=== PATIENT | male | born 1975 | race Caucasian/White ===

== ENCOUNTER → 2017-01-15 | Outpatient (CLI) | payer SELFPAY ==
--- NOTE | 2017-01-15 14:53 | CT ---
EXAMINATION TYPE: CT heart w calcium score DATE OF EXAM: 01/15/2017 10:33 AM COMPARISON: NONE HISTORY: Screening for cardiovascular disorder. 213.9 CT DLP: 34.6 mGycm Automated exposure control for dose reduction was used. CT CALCIUM SCORING Coronary calcium is a marker for plaque (fatty deposits) in a blood vessel or atherosclerosis (harden ing of the arteries). The presence and amount of calcium detected in a coronary artery by the CT sca n, indicates the presence and amount of atherosclerotic plaque. These calcium deposits appear years before the development of heart disease symptoms such as chest pain and shortness of breath. A calcium score is computed for each of the coronary arteries based upon the volume and density of th e calcium deposits. This can be referred to as your calcified plaque burden. It does not correspond directly to the percentage of narrowing in the artery but does correlate with the severity of the un derlying coronary atherosclerosis. PROCEDURE TECHNIQUE - Prospective Gating was used. Slice thickness: 3mm. Density threshold (HU): 130, Pixel threshold: 3, Algorithm: discrete. RESULTS Region: LM Calcium Score ([place]): 0 Volume (mm3): 0 Mass (g): 0 Region: RCA Calcium Score ([place]): 0 Volume (mm3): 0 Mass (g): 0 Region: LAD Calcium Score ([place]): 0 Volume (mm3): 0 Mass (g): 0 Region: CX Calcium Score ([place]): 0 Volume (mm3): 0 Mass (g): 0 Total: Calcium Score ([place]): 0 Volume (mm3): 0 Mass (g): 0 TOTAL CALCIUM SCORE: 0 OTHER: Ascending thoracic aorta at the level of the main pulmonary artery is 3.1 cm. The main pulmon aquilino bifurcation is 3.2 cm. Pulmonary hypertension should be considered. IMPRESSION: Calcium Score: 0 Implication: No identifiable plaque. Risk of Coronary Artery Disease: Very low, generally less than 5%. Consider mild pulmonary hypertension.
== END | disposition home or self-care (01) ==
LOC: RADXRMAIN 10:01
PROVIDERS: ATTEND Internal Medicine Interventional Cardiology
DX: Z13.9 Encounter for screening, unspecified (principal); Z53.9 Procedure and treatment not carried out, unspecified reason

== ENCOUNTER 2019-10-24 07:47 | Emergency (ER) | payer BC ==
[2019-10-24 07:53] VITALS: BP 148/95; PULSE 87; RESP 19; TEMP 98.3
--- NOTE | 2019-10-24 08:03 | ED ---
General Adult HPI - General Chief complaint: Extremity Injury, Upper Stated complaint: chest cold/pain & fever Time Seen by Provider: 10/24/19 07:50 Source: patient, RN notes reviewed, old records reviewed Mode of arrival: ambulatory Limitations: no limitations - History of Present Illness Initial comments: This is a 44-year-old male who presents emergency Department complaining of right upper chest wall pain. Patient states on Thursday at work they were practicing some wrestling move for his job. Patient states he fell on top of him with his elbow hitting him on the right side of the chest where his area of tenderness continues. Patient states that area is tender to palpation and it hurts take a deep breath or move in certain directions. Patient states he's had a little bit of a cough but no sputum production. Patient denies any difficulty breathing or shortness of breath per patient denies any chest pain over the sternum or left side. Patient denies any back pain. Patient denies any neck or head pain. Patient denies any other complaints at this time. - Related Data Previous Rx's Medication Instructions Recorded Ibuprofen [Motrin] 600 mg PO Q6HR PRN #20 tab 10/24/19 Allergies Allergy/AdvReac Type Severity Reaction Status Date / Time Penicillins Allergy Anaphylaxis Verified 10/24/19 07:54 Sulfa (Sulfonamide Allergy Anaphylaxis Verified 10/24/19 07:54 Antibiotics) sulfamethoxazole Allergy Anaphylaxis Verified 10/24/19 07:54 [From Bactrim] trimethoprim [From Bactrim] Allergy Anaphylaxis Verified 10/24/19 07:54 Review of Systems ROS Statement: Those systems with pertinent positive or pertinent negative responses have been documented in the HPI. ROS Other: All systems not noted in ROS Statement are negative. Past Medical History Past Medical History: No Reported History History of Any Multi-Drug Resistant Organisms: None Reported Past Surgical History: Hernia Repair Additional Past Surgical History / Comment(s): nasal surgery Past Psychological History: No Psychological Hx Reported Smoking Status: Never smoker Past Alcohol Use History: Occasional Past Drug Use History: None Reported General Exam - General Exam Comments Initial Comments: GENERAL: Patient is well-developed and well-nourished. Patient is nontoxic and well- hydrated and is in mild distress. ENT: Neck is soft and supple. No significant lymphadenopathy is noted. Oropharynx is clear. Moist mucous membranes. Neck has full range of motion without eliciting any pain. EYES: The sclera were anicteric and conjunctiva were pink and moist. Extraocular movements were intact and pupils were equal round and reactive to light. Eyelids were unremarkable. PULMONARY: Unlabored respirations. Good breath sounds bilaterally. No audible rales rhonchi or wheezing was noted. CARDIOVASCULAR: There is a regular rate and rhythm without any murmurs gallops or rubs. Right upper anterior chest wall is tender to palpation ABDOMEN: Soft and nontender with normal bowel sounds. No palpable organomegaly was noted. There is no palpable pulsatile mass. SKIN: Skin is clear with no lesions or rashes and otherwise unremarkable. NEUROLOGIC: Patient is alert and oriented x3. Cranial nerves II through XII are grossly intact. Motor and sensory are also intact. Normal speech, volume and content. Symmetrical smile. MUSCULOSKELETAL: Normal extremities with adequate strength and full range of motion. No lower extremity swelling or edema. No calf tenderness. LYMPHATICS: No significant lymphadenopathy is noted PSYCHIATRIC: Normal psychiatric evaluation. Limitations: no limitations Course Vital Signs 10/24/19 07:49 Temperature 98.3 F Pulse Rate 87 Respiratory 19 Rate Blood Pressure 148/95 O2 Sat by Pulse 100 Oximetry Medical Decision Making - Medical Decision Making X-ray of the ribs and chest show no acute abnormality. Disposition Clinical Impression: Chest wall pain Disposition: HOME SELF-CARE Instructions (If sedation given, give patient instructions): Chest Wall Pain (ED) Additional Instructions: Patient's take Motrin when necessary for pain Prescriptions: Ibuprofen [Motrin] 600 mg PO Q6HR PRN #20 tab PRN Reason: For pain Is patient prescribed a controlled substance at d/c from ED?: No Referrals: Kishan Funez DO [Primary Care Provider] - 1-2 days Time of Disposition: 08:33
--- NOTE | 2019-10-24 08:26 | XR ---
EXAMINATION TYPE: XR ribs RT w pa chest xray DATE OF EXAM: 10/24/2019 CLINICAL HISTORY: Trauma and subsequent chest pain TECHNIQUE: Single frontal view of the chest is obtained. 2 views of the right ribs were also obtained . COMPARISON: 03/12/2011 FINDINGS: Linear right basilar platelike atelectasis is present. There is no focal air space opacity , pleural effusion, or pneumothorax seen. The cardiac silhouette size is within normal limits of siz e and slightly shifted to the right unchanged from the prior of 2010. Old healed right rib fracture w ith sclerotic borders is seen of the lateral margin of rib 7 on the right. No acute displaced right r ib fractures seen. IMPRESSION: 1. Linear right basilar subsegmental atelectasis. 2. Old healed fracture of the lateral margin of rib 7 on the right. No acute displaced right rib frac ture.
== END 2019-10-24 08:35 | disposition home or self-care (01) ==
LOC: EC 07:47
DX: R07.89 Other chest pain (principal); R05 Cough; Z88.0 Allergy status to penicillin; Z88.2 Allergy status to sulfonamides; W50.0XXA Accidental hit or strike by another person, initial encounter; Y93.72 Activity, wrestling; Y92.69 Other specified industrial and construction area as the place of occurrence of the external cause
CPT/HCPCS: 99284

== ENCOUNTER → 2024-12-29 | Outpatient (CLI) | payer BC ==
--- NOTE | 2024-12-29 13:03 | CA ---
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 Cardiac Medications: Medications in past 24 hours: Contrast: Definity Stress Results Protocol: Perry Total dose(mL): 2 Exercise Duration (min:sec): 7:[address] Depression (mm): Angina Score: Cantrell Score: METS: 8.3 Resting HR: 80 Resting BP: 140 / 91 Peak HR: 165 Peak BP: 175 / 80 Max Predicted HR: 171 96 % Max Predicted HR Target HR: 145 Double Product: [id number] Stress Summary: BP Response: Reason for Termination: Reached target heart rate or work-load Cardiac Symptoms: Dyspnea ECG Analysis Resting ECG: Stress ECG: Arrhythmia: Echo Analysis Resting Echo: Peak Echo Analysis: MEASUREMENTS (Male/Female) Normal Values CONCLUSIONS Good exercise tolerance Normal electrocardiogram and echocardiogram with exercise Dr. Robert Berrios MD (Electronically Signed) Final Date: 29 December 2024 13:03
== END | disposition home or self-care (01) ==
LOC: RADNMMAIN 10:25
PROVIDERS: ATTEND Family Medicine
DX: R07.9 Chest pain, unspecified (principal); R06.00 Dyspnea, unspecified
CPT/HCPCS: 93351; Q9957